=== PATIENT | male | born 1955 | race Caucasian/White ===

== ENCOUNTER 2019-02-06 15:22 | Inpatient (IN) | payer OTHER, SELFPAY ==
[2019-02-06] MEDS ORDERED: NA CHLORIDE 0.9% 1,000 ML ONE (15:48)
--- NOTE | 2019-02-06 15:49 | RAD REPORT ---
EXAM DESCRIPTION: CT - Ct Stroke Brain Wo Cont - 02/06/2019 3:37 pm CLINICAL HISTORY: Right arm numbness COMPARISON: None TECHNIQUE: Computed axial tomography of the head was obtained. All CT scans are performed using dose optimization technique as appropriate and may include automated exposure control or mA/KV adjustment according to patient size. FINDINGS: An intracranial bleed is not seen . The ventricles are normal in caliber. No extra-axial fluid collection is noted. Small low-density areas within the right cerebrum probably old infarction. Mild low-density within periventricular, deep and subcortical white matter likely ischemic changes s econdary to small vessel disease Fluid within the sinuses/ mastoids is not seen. IMPRESSION: No acute intracranial abnormality is seen. If patient's symptoms persist MRI of the bra in would be recommended. [place] of the emergency room was notified at 3:43 p.m. February 06, 2019
[2019-02-06 15:54] LABS: Absolute Lymphocytes (CBC) 2.8 K/uL (0.7-4.9); Hematocrit 46.7 % (39.6-49.0); Lymphocytes % 24.5 % (15.3-44.8); MPV 9.5 fL (7.6-11.3); RBC Red Blood Cell Count 5.34 M/uL (4.33-5.43)
[2019-02-06 15:59] LABS: Protime INR 1.01
[2019-02-06 16:06] LABS: Potassium 3.5 mmol/L (3.5-5.1)
--- NOTE | 2019-02-06 16:16 | RAD REPORT ---
EXAM DESCRIPTION: Michael Single View02/06/2019 4:02 pm CLINICAL HISTORY: Hypertension COMPARISON: 2008 FINDINGS: The lungs appear clear of acute infiltrate. The heart is borderline enlarged IMPRESSION: No acute abnormalities displayed
[2019-02-06] MEDS ORDERED: dilTIAZem HCL 25 MG/5 ML VIAL IV ONE (16:42)
--- NOTE | 2019-02-06 16:52 | ER ---
Nurse's Notes [facility] Name: Devendra Key Age: 64 yrs Sex: Male : 1955 Arrival Date: 02/06/2019 Time: 15:29 Bed 3 Private MD: Diagnosis: Atrial fibrillation and flutter;Tachycardia, unspecified Presentation: 02/06 15:30 Presenting complaint: EMS states: right arm, right leg, and tongue numbness that began aa5 today at 1400. Pt states "I am just having tingling now not numbness". Pt denies pain. EMS reports initial BP 220/130 and HR 140, decreased to 197/128 after 1 Nitro. 15:30 Transition of care: patient was not received from another setting of care. An acute aa5 neurological deficit is present. Pre-hospital glucose is not applicable to this patient. Onset of symptoms was February 06, 2019. Risk Assessment: Do you want to hurt yourself or someone else? Patient reports no desire to harm self or others. Initial Sepsis Screen: Does the patient meet any 2 criteria? HR > 90 bpm. Does the patient have a suspected source of infection? No. Patient's initial sepsis screen is negative. Care prior to arrival: Medication(s) given: ASA, 81 mg, x 4, Nitroglycerin, 0.4 mg SL x 1, IV initiated. 18 GA, in the left antecubital area, Glucose check: 401. 15:30 Acuity: JACKELINE 2 aa5 15:30 Method Of Arrival: EMS: [facility] aa5 Triage Assessment: 15:30 The onset of the patients symptoms was February 06, 2019 at 14:00. aa5 Stroke Activation: Symptom onset < 3 hours Physician: Stroke Attending; Name: ; Notified At: ; Arrived At: Physician: Chief Stroke Resident; Name: ; Notified At: ; Arrived At: Physician: Stroke Resident; Name: ; Notified At: ; Arrived At: Physician: ED Attending; Name: ; Notified At: ; Arrived At: Physician: ED Resident; Name: ; Notified At: ; Arrived At: Historical: - Allergies: 15:35 No Known Allergies; aa5 - Home Meds: 15:35 None [Active]; aa5 - PMHx: 15:35 Myocardial infarction; Hypertension; aa5 - PSHx: 15:35 Heart stents; Cholecystectomy; Appendectomy; neck; cara knee; shoulder; foot; aa5 - Immunization history:: Adult Immunizations unknown. - Social history:: Patient/guardian denies using alcohol, street drugs, The patient lives alone, with family, Smoking status: Patient uses tobacco products, smokes two packs cigarettes per day. - Family history:: not pertinent. - Ebola Screening: : No symptoms or risks identified at this time. Screenin:30 Abuse screen: Denies threats or abuse. Nutritional screening: No deficits noted. aa5 Tuberculosis screening: No symptoms or risk factors identified. Fall Risk None identified. Assessment: 15:30 General: Appears comfortable, Behavior is calm, cooperative. Pain: Denies pain. Neuro: aa5 Level of Consciousness is awake, alert, obeys commands, Oriented to person, place, time, situation, Partition Assembler are equal bilaterally Moves all extremities. Speech is normal, Facial symmetry appears normal, Pupils are PERRLA, Reports tingling to right arm and right leg. Cardiovascular: Heart tones S1 S2 present Rhythm is atrial fibrillation with rapid ventricular response. Respiratory: Airway is patent Respiratory effort is even, unlabored, Respiratory pattern is regular, symmetrical, Breath sounds are clear bilaterally. GI: Abdomen is round non-distended, Bowel sounds present X 4 quads. Abd is soft and non tender X 4 quads. Patient currently denies nausea, vomiting. : No signs and/or symptoms were reported regarding the genitourinary system. EENT: No signs and/or symptoms were reported regarding the EENT system. Derm: Skin is pink, warm \\T\\ dry. Musculoskeletal: Range of motion: intact in all extremities. 15:30 T-PA (Activase) Screening: Contraindications: Other: Rapid improvement of symptoms. aa5 15:32 Reassessment: Pt to CT via stretcher, accompanied by Marnie Eastman RN. aa5 15:32 VAN Scoring: Arm Drift: Patients demonstrates NO arm weakness. Patient is VAN Negative. aa5 15:55 Patient has been NPO before screening. The patient is alert, and able to follow aa5 commands. The patient does not exhibit slurred or garbled speech. The patient is not exhibiting difficulty speaking. The patient does not exhibit difficulty understanding words. The patient is able to swallow own secretions with no drooling or need for suction. Patient tolerated one teaspoon of water. No drooling, immediate coughing, gurgling, or clearing of the throat was noted. The patient tolerated 90mL of water. No drooling, immediate coughing, gurgling, or clearing of the throat was noted. The patient passed the bedside swallow screening. Oral medications may be given as ordered. Contact Physician for further diet orders. Provider notified of bedside swallow screening results: Aniyah Mckeon MD. 16:00 Reassessment: Patient is alert, oriented x 3, equal unlabored respirations, skin aa5 warm/dry/pink. Patient denies pain at this time. Reports tingling to right arm and right leg, symptoms remain unchanged. . 16:50 Reassessment: Patient is alert, oriented x 3, equal unlabored respirations, skin aa5 warm/dry/pink. Patient denies pain at this time. 17:50 Reassessment: Patient appears in no apparent distress at this time. No changes from rb1 previously documented assessment. Family and friends at the bedside. Pt. is laughing and joking around with them. 18:00 Reassessment: Unsuccessful attempt to call report to admitting nurse. . aa5 18:00 Reassessment: Patient is alert, oriented x 3, equal unlabored respirations, skin aa5 warm/dry/pink. Patient denies pain at this time. Pt reports mild tingling to right arm and right leg. . 18:33 Reassessment: Pt taken to CT via wheelchair. . aa5 19:10 Reassessment: Patient appears in no apparent distress at this time. Patient and/or cc3 family updated on plan of care and expected duration. Pain level reassessed. Patient is alert, oriented x 3, equal unlabored respirations, skin warm/dry/pink. Received this male patient from morning shift DAVID Garcia as a case of atrial fibrillation for admission to room 409 after shift change. With IV cannula gauge 18 at the left ACV saline locked. Patient denies pain at this time. Patient states feeling better. Patient states symptoms have improved. General: Appears in no apparent distress. comfortable, Behavior is calm, cooperative, appropriate for age. Pain: Denies pain. Neuro: Level of Consciousness is awake, alert, obeys commands, Oriented to person, place, time, situation, Appropriate for age Partition Assembler are equal bilaterally Moves all extremities. Speech is normal, Facial symmetry appears normal, Pupils are PERRLA, Reports tingling to right arm and right leg. Cardiovascular: Denies chest pain, Heart tones S1 S2 present Capillary refill < 3 seconds in bilateral fingers Patient's skin is warm and dry. Rhythm is atrial fibrillation. Respiratory: Airway is patent Respiratory effort is even, unlabored, Respiratory pattern is regular, symmetrical, Breath sounds are clear bilaterally. GI: Abdomen is round non-distended, Bowel sounds present X 4 quads. Abd is soft and non tender X 4 quads. Patient currently denies nausea, vomiting. : No signs and/or symptoms were reported regarding the genitourinary system. EENT: No signs and/or symptoms were reported regarding the EENT system. Derm: Skin is intact, is fragile, Skin is pink, warm \\T\\ dry. normal. Musculoskeletal: Circulation, motion, and sensation intact. Range of motion: intact in all extremities. 19:47 Reassessment: Patient appears in no apparent distress at this time. Patient and/or cc3 family updated on plan of care and expected duration. Pain level reassessed. Patient is alert, oriented x 3, equal unlabored respirations, skin warm/dry/pink. Room available in 409, report called and handed over to DAVID Reynoso for continuity of care and treatment. 20:00 Reassessment: Patient appears in no apparent distress at this time. Patient and/or cc3 family updated on plan of care and expected duration. Pain level reassessed. Patient is alert, oriented x 3, equal unlabored respirations, skin warm/dry/pink. Patient left ER for admission vitally stable by stretcher escorted by offshore wind turbine technicianprasanth Stiles and the patient's family. No valuables left in the patient's room. Patient denies pain at this time. Patient states feeling better. Patient states symptoms have improved. Vital Signs: 15:31 BP 186 / 139; Pulse 118; Resp 18 S; Pulse Ox 98% on R/A; Pain 0/10; aa5 15:40 Temp 98.5(O); aa5 15:45 BP 170 / 117; Pulse 106; Resp 16 S; Pulse Ox 99% on R/A; aa5 16:30 BP 161 / 108; Pulse 108; Resp 18 S; Pulse Ox 99% on R/A; aa5 16:50 BP 141 / 99; Pulse 100; Resp 18 S; Pulse Ox 99% on R/A; aa5 17:50 BP 152 / 86; Pulse 86; Resp 20; Pulse Ox 98% on R/A; rb1 19:48 BP 183 / 93; Pulse 95; Resp 19 S; Temp 97.7(O); Pulse Ox 98% on R/A; cc3 NIH Stroke Scale Scores: 15:30 NIHSS Score: 1 aa5 ED Course: 15:29 Patient arrived in ED. aa5 15:30 Radha Domínguez, RN is Primary Nurse. aa5 15:30 Arm band placed on. EKG completed in triage. Results shown to MD. aa5 15:30 Patient has correct armband on for positive identification. Placed in gown. Bed in low aa5 position. Call light in reach. Side rails up X2. 15:30 court monitor on. Pulse ox on. NIBP on. aa5 15:31 EKG done, by dietetic technician. reviewed by Aniyah Mckeon MD. 3 15:32 Aniyah Mckeon MD is Attending Physician. ma2 15:35 Triage completed. aa5 15:37 CT completed. Patient tolerated procedure well. vm2 15:[address] back from [address]. vm2 15:37 CT Stroke Brain w/o Contrast In Process Unspecified. EDMS 15:42 Initial lab(s) drawn, sent to lab. Maintain EMS IV. Dressing intact. Good blood return aa5 noted. Site clean \\T\\ dry. Gauge \\T\\ site: 18 G to L AC . 16:03 Stroke CXR 1 View In Process Unspecified. EDMS 16:51 Sid Clark MD is Hospitalizing Provider. ma2 19:00 Report given to DAVID Hernandez and DAVID Panda. aa5 20:00 No provider procedures requiring assistance completed. Patient admitted, IV remains in cc3 place. Administered Medications: 15:55 Drug: NS 0.9% 1000 ml Route: IV; Rate: 1 bolus; Site: left antecubital; aa5 16:53 Follow up: IV Status: Completed infusion; IV Intake: 1000ml aa5 16:43 Drug: Diltiazem 20 mg Route: IVP; Site: left antecubital; aa5 16:53 Follow up: Response: No adverse reaction aa5 19:22 Drug: Tylenol 650 mg Route: PO; ea 19:30 Follow up: Response: No adverse reaction cc3 Point of Care Testing: Blood Glucose: 15:43 Blood Glucose: 357 mg/dL; aa5 Ranges: Intake: 16:53 IV: 1000ml; Total: 1000ml. aa5 Outcome: 16:51 Decision to Hospitalize by Provider. ma2 20:00 Admitted to Tele accompanied by tech, family with patient, via stretcher, room 409, cc3 with chart, Report called to DAVID Reynoso 20:00 Condition: stable 20:00 Instructed on the need for admit, Demonstrated understanding of instructions. 20:09 Patient left the ED. cc3 NIH Stroke Scale - NIH Stroke Score Date: 02/06/2019 Time: 15:30 Total Score = 1 1a. Level of Consciousness (LOC) - 0(Alert) 1b. Level of Consciousness (LOC) (Year \\T\\ Age) - 0(Both) 1c. LOC Commands (Open \\T\\ Closes Eyes/Hydrometeorologist) - 0(Both) 2. Best Gaze (Lateral Gaze Paresis) - 0(Normal) 3. Visual Field Loss - 0(No visual loss) 4. Facial Palsy - 0(Normal) 5a. Left Arm: Motor (10-second hold) - 0(No drift) 5b. Right Arm: Motor (10-second hold) - 0(No drift) 6a. Left Leg: Motor (5-second hold - always test supine) - 0(No drift) 6b. Right Leg: Motor (5-second hold - always test supine) - 0(No drift) 7. Limb Ataxia (finger/nose \\T\\ heel/clark - test with eyes open) - 0(Absent) 8. Sensory Loss (pinprick arms/legs/face) - 1(Mild to moderate loss) 9. Best Language: Aphasia (description/naming/reading) - 0(No aphasia) 10. Dysarthria (speech clarity - read or repeat words) - 0(Normal) 11. Extinction and Inattention (visual/tactile/auditory/spatial/personal) - 0(No abnormality) Initials: aa5 Signatures: Dispatcher [employer] EDRadha Zaragoza RN RN aa5 Angelia Betts RN RN [facility] Mary Goddard RN RN Aniyah Shukla MD MD ma2 Piedad Ruggiero 3 Amarilys Szymanski cc3 Corrections: (The following items were deleted from the chart) 15:38 15:30 Presenting complaint: EMS states: right arm, right leg, and tongue aa5 numbness that began today at 1400. Pt states "I am just having tingling now not numbness". Pt denies pain. aa5 19:54 19:48 BP 183 / 93; Pulse 95bpm; Resp 19bpm; Spontaneous; Pulse Ox 98% RA; cc3 cc3
--- NOTE | 2019-02-06 16:53 | EDPHYS ---
Physician Documentation [facility] Name: Devendra Key Age: 64 yrs Sex: Male : 1955 Arrival Date: 02/06/2019 Time: 15:29 Bed 3 Private MD: ED Physician Aniyah Mckeon HPI: 02/06 15:33 This 64 yrs old Male presents to ER via Unassigned with complaints of S/S of ma2 Possible Stroke. 15:33 The patient's problem is reported as paresthesias, in right upper extremity, in right ma2 lower extremity. Onset: The symptoms/episode began/occurred gradually, 1 hour(s) ago. Associated signs and symptoms: Pertinent negatives: ataxia, combativeness, diarrhea, dizziness. Severity of symptoms: At their worst the symptoms were mild in the emergency department the symptoms have resolved. The patient has experienced similar episodes in the past. Historical: - Allergies: 15:35 No Known Allergies; aa5 - Home Meds: 15:35 None [Active]; aa5 - PMHx: 15:35 Myocardial infarction; Hypertension; aa5 - PSHx: 15:35 Heart stents; Cholecystectomy; Appendectomy; neck; cara knee; shoulder; foot; aa5 - Immunization history:: Adult Immunizations unknown. - Social history:: Patient/guardian denies using alcohol, street drugs, The patient lives alone, with family, Smoking status: Patient uses tobacco products, smokes two packs cigarettes per day. - Family history:: not pertinent. - Ebola Screening: : No symptoms or risks identified at this time. ROS: 15:33 Constitutional: Negative for fever, chills, and weight loss. ma2 15:33 All other systems are negative. Exam: 15:33 Constitutional: This is a well developed, well nourished patient who is awake, alert, ma2 and in no acute distress. Head/Face: Normocephalic, atraumatic. Chest/axilla: Normal chest wall appearance and motion. Nontender with no deformity. No lesions are appreciated. Cardiovascular: Regular rate and rhythm with a normal S1 and S2. No gallops, murmurs, or rubs. Normal PMI, no JVD. No pulse deficits. Respiratory: Lungs have equal breath sounds bilaterally, clear to auscultation and percussion. No rales, rhonchi or wheezes noted. No increased work of breathing, no retractions or nasal flaring. Abdomen/GI: Soft, non-tender, with normal bowel sounds. No distension or tympany. No guarding or rebound. No evidence of tenderness throughout. Skin: Warm, dry with normal turgor. Normal color with no rashes, no lesions, and no evidence of cellulitis. MS/ Extremity: Pulses equal, no cyanosis. Neurovascular intact. Full, normal range of motion. Neuro: Awake and alert, GCS 15, oriented to person, place, time, and situation. Cranial nerves II-XII grossly intact. Motor strength 5/5 in all extremities. Sensory grossly intact. Cerebellar exam normal. Normal gait. Vital Signs: 15:31 BP 186 / 139; Pulse 118; Resp 18 S; Pulse Ox 98% on R/A; Pain 0/10; aa5 15:40 Temp 98.5(O); aa5 15:45 BP 170 / 117; Pulse 106; Resp 16 S; Pulse Ox 99% on R/A; aa5 16:30 BP 161 / 108; Pulse 108; Resp 18 S; Pulse Ox 99% on R/A; aa5 16:50 BP 141 / 99; Pulse 100; Resp 18 S; Pulse Ox 99% on R/A; aa5 17:50 BP 152 / 86; Pulse 86; Resp 20; Pulse Ox 98% on R/A; rb1 19:48 BP 183 / 93; Pulse 95; Resp 19 S; Temp 97.7(O); Pulse Ox 98% on R/A; cc3 NIH Stroke Scale Scores: 15:30 NIHSS Score: 1 aa5 MDM: 15:32 Patient medically screened. ma2 15:33 Differential diagnosis: CVA, TIA, Dementia, metabolic disorder, drug effects. ma2 16:50 Data reviewed: vital signs, nurses notes. Data interpreted: media monitor: rate is ma2 120 beats/min, rhythm is atrial fibrillation. Counseling: I had a detailed discussion with the patient and/or guardian regarding: the historical points, exam findings, and any diagnostic results supporting the discharge/admit diagnosis, the presence of at least one elevated blood pressure reading (>120/80) during this emergency department visit, the need for further work-up and treatment in the hospital. Response to treatment: the patient's symptoms have markedly improved after treatment. 02/06 15:31 Order name: Basic Metabolic Panel; Complete Time: 16:37 [facility] 02/06 15:31 Order name: CBC with Diff; Complete Time: 16:37 [facility] 02/06 15:31 Order name: Protime (+inr); Complete Time: 16:37 [facility] 02/06 15:31 Order name: Ptt, Activated; Complete Time: 16:37 [facility] 02/06 15:56 Order name: Glucose, Ancillary Testing; Complete Time: 16:37 [facility] 02/06 17:01 Order name: Thyroid Stimulating Hormone [facility] 02/06 15:31 Order name: CT Stroke Brain w/o Contrast; Complete Time: 16:37 [facility] 02/06 17:01 Order name: CKMB Creatine Kinase MB [facility] 02/06 17:01 Order name: Creatine Phosphokinase [facility] 02/06 17:01 Order name: Troponin I [facility] 02/06 17:47 Order name: Hemoglobin A1c [facility] 02/06 17:47 Order name: Hemoglobin A1c [facility] 02/06 19:58 Order name: Urinalysis [facility] 02/06 19:59 Order name: Urine Dipstick--Ancillary (enter results) [facility] 02/06 15:31 Order name: Stroke CXR 1 View; Complete Time: 16:37 [facility] 02/06 15:31 Order name: EKG; Complete Time: 15:32 [facility] 02/06 15:31 Order name: Accucheck; Complete Time: 15:45 [facility] 02/06 15:31 Order name: Cardiac monitoring; Complete Time: 15:31 [facility] 02/06 15:31 Order name: EKG - Nurse/Tech; Complete Time: 15:33 [facility] 02/06 15:31 Order name: IV Saline Lock; Complete Time: 15:31 [facility] 02/06 15:31 Order name: Labs collected and sent; Complete Time: 15:45 [facility] 02/06 15:31 Order name: NPO; Complete Time: 15:31 [facility] 02/06 17:01 Order name: Heart Healthy [facility] 02/06 17:44 Order name: Brain Wo Cont [facility] 02/06 17:47 Order name: Echo with Doppler [facility] 02/06 17:47 Order name: Carotid Artery Bilateral [facility] 02/06 17:49 Order name: Physical Therapy Consult [facility] 02/06 15:31 Order name: O2 Per Protocol; Complete Time: 15:31 aa5 02/06 15:31 Order name: O2 Sat Monitoring; Complete Time: 15:31 aa5 02/06 15:31 Order name: Stroke Swallow Screen; Complete Time: 18:34 aa5 Administered Medications: 15:55 Drug: NS 0.9% 1000 ml Route: IV; Rate: 1 bolus; Site: left antecubital; aa5 16:53 Follow up: IV Status: Completed infusion; IV Intake: 1000ml aa5 16:43 Drug: Diltiazem 20 mg Route: IVP; Site: left antecubital; aa5 16:53 Follow up: Response: No adverse reaction aa5 19:22 Drug: Tylenol 650 mg Route: PO; ea 19:30 Follow up: Response: No adverse reaction cc3 Point of Care Testing: Blood Glucose: 15:43 Blood Glucose: 357 mg/dL; aa5 Ranges: Critical Glucose Levels:Adult <50 mg/dl or >400 mg/dl <40 mg/dl or >180 mg/dl Disposition: 02/06/19 16:51 Hospitalization ordered by Sid Clark for Observation. Preliminary diagnosis are Atrial fibrillation and flutter, Tachycardia, unspecified. - Bed requested for Telemetry/MedSurg (observation). - Status is Observation. cc3 - Condition is Stable. - Problem is new. - Symptoms are unchanged. UTI on Admission? No NIH Stroke Scale - NIH Stroke Score Date: 02/06/2019 Time: 15:30 Total Score = 1 1a. Level of Consciousness (LOC) - 0(Alert) 1b. Level of Consciousness (LOC) (Year \T\ Age) - 0(Both) 1c. LOC Commands (Open \T\ Closes Eyes/Clipper And Turner) - 0(Both) 2. Best Gaze (Lateral Gaze Paresis) - 0(Normal) 3. Visual Field Loss - 0(No visual loss) 4. Facial Palsy - 0(Normal) 5a. Left Arm: Motor (10-second hold) - 0(No drift) 5b. Right Arm: Motor (10-second hold) - 0(No drift) 6a. Left Leg: Motor (5-second hold - always test supine) - 0(No drift) 6b. Right Leg: Motor (5-second hold - always test supine) - 0(No drift) 7. Limb Ataxia (finger/nose \T\ heel/clark - test with eyes open) - 0(Absent) 8. Sensory Loss (pinprick arms/legs/face) - 1(Mild to moderate loss) 9. Best Language: Aphasia (description/naming/reading) - 0(No aphasia) 10. Dysarthria (speech clarity - read or repeat words) - 0(Normal) 11. Extinction and Inattention (visual/tactile/auditory/spatial/personal) - 0(No abnormality) Initials: aa5 Signatures: Dispatcher [employer] EDMS Martha Canales RN RN Radha Das RN RN aa5 Mary Goddard, RN RN Aniyah Shukla MD MD ma2 Amarilys Szymanski cc3 Corrections: (The following items were deleted from the chart) 17:49 16:51 Hospitalization Ordered by Sid Clark MD for Observation. Preliminary dw diagnosis is Atrial fibrillation and flutter; Tachycardia, unspecified. Bed requested for Telemetry/MedSurg (observation). Status is Observation. Condition is Stable. Problem is new. Symptoms are unchanged. UTI on Admission? No. ma2 20:09 17:49 02/06/2019 16:51 Hospitalization Ordered by Sid Clark MD for cc3 Observation. Preliminary diagnosis is Atrial fibrillation and flutter; Tachycardia, unspecified. Bed requested for Telemetry/MedSurg (observation). Status is Observation. Condition is Stable. Problem is new. Symptoms are unchanged. UTI on Admission? No. dw
[2019-02-06] MEDS ORDERED: ACETAMINOPHEN 500 MG TAB PO PRN (16:57)
--- NOTE | 2019-02-06 17:30 | P.HP ---
Certification for Inpatient Patient admitted to: Observation With expected LOS: <2 Midnights Patient will require the following post-hospital care: None Practitioner: I am a practitioner with admitting privileges, knowledge of patient current condition, hospital course, and medical plan of care. Services: Services provided to patient in accordance with Admission requirements found in Title 42 Section 412.3 of the Code of Federal Regulations Patient History Date of Service: 02/06/19 Reason for admission: right upper extremity numbness History of Present Illness: 64-year-old male with past medical history of hypertension, CAD, status post stents approximately 10 years ago, hyperlipidemia, smoker came to ER with tingling and numbness of the right upper extremity and lower extremity on the right side which started at 2 o'clock in the afternoon. Insidious in onset. denies any chest pain or palpitations. had diaphoresis. No fever no chills. no weakness. Denies any headache. Patient was assessed in the ER and was found to have AFib with RVR with heart rate of more than 120 and had a stroke workup with CT head which was negative. Patient was given Cardizem and the rate was controlled well. the patient is being admitted for further workup and management Home medications list reviewed: Yes - Past Medical/Surgical History Past Medical History: Reviewed- Non-Contributory -: Hypertension -: Coronary artery disease -: Hyperlipidemia Past Surgical History: Reviewed- Non-Contributory -: Neck surgery -: Cholecystectomy -: Knee surgeries and other orthopedic surgeries in the foot - Family History Family History: Reviewed- Non-Contributory - Social History Smoking Status: Current every day smoker Review of Systems 10-point ROS is otherwise unremarkable Respiratory: Unremarkable Cardiovascular: Unremarkable Physical Examination - Vital Signs Temperature: 97.8 F Blood Pressure: 146/88 Pulse: 86 - Physical Exam General: Alert, In no apparent distress, Obese HEENT: Atraumatic, Normocephalic Neck: Supple, No Thyromegaly Respiratory: Clear to auscultation bilaterally, Normal air movement Cardiovascular: Irregular heart rate/rhythm Capillary refill: <2 Seconds Gastrointestinal: Soft and benign, W/out hepatosplenomegaly Musculoskeletal: No clubbing, No swelling Integumentary: No rashes Neurological: Normal speech, Normal strength at 5/5 x4 extr, Other (Right upper extremity sensory deficits), Abnormal sensation Lymphatics: No axilla or inguinal lymphadenopathy External genitalia: Deferred Rectal: Deferred - Studies Laboratory Data (last 24 hrs) 02/06/19 15:42: PT 11.9, INR 1.01, APTT 32.3 02/06/19 15:42: WBC 11.4 H, Hgb 16.2, Hct 46.7, Plt Count 180 02/06/19 15:42: Sodium 137, Potassium 3.5, BUN 21 H, Creatinine 0.97, Glucose 344 H Assessment and Plan - Problems (Diagnosis) (1) Sensory deficit, right Current Visit: Yes Status: Acute Plan: Monitor under telemetry Will get a stroke workup with MRI of the brain and carotid Doppler Start on aspirin statin Get a PTOT evaluation neurology consult (2) Atrial fibrillation with RVR Current Visit: Yes Status: Acute Plan: Monitor under telemetry will start on beta blockers for rate control Get an echocardiogram Trend cardiac enzymes Cardiology consult Will start on Lovenox (3) Hypertension Current Visit: Yes Status: Chronic Plan: Will titrate antihypertensives Continue home medications and as needed (4) Hyperlipidemia Current Visit: Yes Status: Acute Plan: Continue home medications Will get a lipid panel (5) Hyperglycemia Current Visit: Yes Status: Acute Plan: start on insulin sliding scale Get an A1c (6) Smoker Current Visit: Yes Status: Chronic Plan: Advised smoking cessation Offered measures 2 stops smoking (7) History of coronary artery disease Current Visit: Yes Status: Chronic Plan: History of CAD status post stents Monitor under telemetry Continue statin and aspirin Trend cardiac enzymes Discharge Plan: Home Plan to discharge in: 48 Hours - Advance Directives Does patient have a Living Will: No Does patient have a Durable POA for Healthcare: No Time Spent Managing Pts Care (In Minutes): 43
[2019-02-06 17:44] LABS: CKMB Creatine Kinase MB 2.1 ng/mL (0.3-3.6); Creatine Phosphokinase 128 U/L (39-308); Troponin I < 0.02 ng/mL (0.0-0.045)
[2019-02-06] MEDS ORDERED: D50W 25 GM/50 ML SYRINGE/VIAL IV PRN (17:46)
[2019-02-06] MEDS ORDERED: GLUCAGON 1 MG/VIAL IM PRN (17:46)
--- NOTE | 2019-02-06 18:34 | EKG ---
Test Date: 2019-02-06 Test Time: 15:25:41 Customer Operations Representative: EVA MEASUREMENT RESULTS: Intervals: Rate: 110 MT: QRSD: 88 QT: 342 QTc: 462 [place]: P: MT: QRS: -20 T: 78 INTERPRETIVE STATEMENTS: Atrial fibrillation with rapid ventricular response Septal infarct, age undetermined Abnormal ECG No previous ECG available for comparison Electronically Signed On 02-06-19 18:33:13 ASSEMBLY MACHINE SET UP MECHANIC by Juan Donato
[2019-02-06] MEDS ORDERED: ACETAMINOPHEN 325 MG TABLET ONE (19:13)
--- NOTE | 2019-02-06 19:14 | RAD REPORT ---
EXAM DESCRIPTION: MRI - Brain Wo Cont - 02/06/2019 6:56 pm CLINICAL HISTORY: Numbness COMPARISON: none TECHNIQUE: Axial, sagittal, and coronal magnetic images of the brain were obtained. Contrast was not requested FINDINGS: Mild to moderate signal within periventricular and deep white matter likely ischemic paul es secondary to small vessel disease Diffusion-weighted/ADC mapping demonstrates a 7 millimeter area of abnormal signal within the right c erebellum as well as a 5 millimeter area of abnormal signal within the left thalamus compatible with infarcts. . The ventricles are normal caliber. An extra-axial fluid collection is not present The sinuses and mastoids are clear. IMPRESSION: Small areas of abnormal signal within the right cerebellum and left thalamus compatible with infarcts
[2019-02-06 20:16] LABS: Urine Blood NEGATIVE (NEG); Urine Glucose 3+ (NEG); Urine Protein 2+ (NEG)
[2019-02-06 20:21] LABS: Urine Appearance CLEAR; Urine Bilirubin NEGATIVE (NEG); Urine Blood NEGATIVE (NEG); Urine Color YELLOW; Urine Glucose 3+ (NEG); Urine Protein 2+ (NEG); Urine Urobilinogen 0.2 mg/dL (0.2-1.0)
[2019-02-06 20:26] LABS: Urine Microscopic Reflex ORDER UMIC
[2019-02-06 20:42] LABS: Urine Bacteria <20 /HPF (NONE SEEN); Urine RBC <5 /HPF (NONE SEEN)
[2019-02-06 20:43] LABS: Urine Amorphous Sediment 1+ /HPF (NONE SEEN); Urine Culture Reflex Order NOT NEEDED; Urine Mucus 1+ /HPF (NONE SEEN)
--- NOTE | 2019-02-06 20:54 | RAD REPORT ---
EXAM DESCRIPTION: USCarotid Artery Qsohkdbak68/20/2019 8:16 pm CLINICAL HISTORY: cva COMPARISON: None FINDINGS: Mild to moderate plaque within the right carotid bulb. The right internal carotid artery i s occluded. Right external carotid artery is patent. The velocity of the left internal carotid artery equals 92 cm/sec. The left ICA/CCA ratio 0.9 Mild plaque is present within the carotid arteries. The vertebral arteries demonstrate antegrade flow IMPRESSION: Right internal carotid artery is occluded. My suspicion is that this is chronic NASCET criteria used. Mild 0-49% stenosis Moderate 50-69% stenosis Severe 70-99% stenosis
[2019-02-06 21:00] VITALS: BMI 30.7
[2019-02-06] MEDS ORDERED: ENOXAPARIN 100 MG/ML SYR SQ SCH (21:00)
[2019-02-06] MEDS ORDERED: INSULIN -REGULAR HUMAN 50 UNIT/0.5 ML ML SQ SCH (21:00)
[2019-02-06] MEDS ORDERED: METOPROLOL TAR 50 MG TAB PO SCH (21:00)
[2019-02-06] MEDS ORDERED: ATORVASTATIN 40 MG TAB PO SCH (21:00)
[2019-02-06] MEDS ORDERED: NA CHLORIDE 0.9% 1,000 ML IV SCH (23:45)
[2019-02-07 01:40] LABS: CKMB Creatine Kinase MB 1.7 ng/mL (0.3-3.6); Creatine Phosphokinase 109 U/L (39-308); Troponin I < 0.02 ng/mL (0.0-0.045)
[2019-02-07 03:23] VITALS: TEMP 98.1
[2019-02-07] MEDS ORDERED: HYDRALAZINE HCL 20 MG/ML VIAL ONE ×2 (03:54→04:39)
[2019-02-07] MEDS: ONDANSETRON 4 MG/2 ML VIAL IV PRN ×2 (04:10→05:00)
[2019-02-07 05:15] LABS: Absolute Lymphocytes (CBC) 5.5 K/uL (0.7-4.9); Basophils % 0.8 % (0-1.3); Hematocrit 50.2 % (39.6-49.0); Lymphocytes % 35.3 % (15.3-44.8); RBC Red Blood Cell Count 5.73 M/uL (4.33-5.43)
[2019-02-07 05:27] LABS: Albumin 3.5 g/dL (3.4-5.0); Bilirubin Total 0.8 mg/dL (0.2-1.0); Magnesium 1.7 mg/dL (1.8-2.4); Phosphorus 2.8 mg/dL (2.5-4.9); Potassium 3.2 mmol/L (3.5-5.1); Protein, Total 6.9 g/dL (6.4-8.2)
[2019-02-07] MEDS ORDERED: Nicardipine/NS 25 MG/250 ML KIT IV ONE (05:43)
[2019-02-07] MEDS ORDERED: Nicardipine in Saline, Iso-Osm 20 MG/200 ML IV.SOLN. IV PRN (05:47)
[2019-02-07] MEDS ORDERED: FENTANYL CITR 100 MCG/2 ML IV ONE (07:40)
[2019-02-07] MEDS ORDERED: INFLUENZA VACCINE (for 3y+) 0.5 ML DOSE IMVAC ONE (08:00)
[2019-02-07] MEDS ORDERED: KCL 20 MEQ/100 mL IVPB 20 MEQ/100 ML BAG IV SCH (08:00)
[2019-02-07] MEDS ORDERED: PNEUMOCOCCAL VACCINE 0.5 ML IMVAC ONE (08:00)
--- NOTE | 2019-02-07 08:11 | P.PN ---
Date of Service: 02/07/19 Called to see patient at 3:30 a.m. Patient was unable to move the right side of his body suddenly. Patient became aphasic. Patient was last seen at 3:00 a.m. by nursing staff. At that time patient was awake and alert an oriented to person place and time. Patient was moving all his extremities. His right side with just minimally weaker than the left. By 3:30 a.m. this had all changed. Patient was aphasic and not moving the right side of his upper or lower extremity. Code stroke was called. Stroke scale was noted to be 14. Significant worsening from stroke scale of [address] of the brain was performed. Revealed MRI findings of right cerebellar infarct & left thalamic infarct. There was some evolution of the stroke as well. We contacted tele neuro. We were advice to Consult transfer center. CT angio of the brain was performed. This revealed minimal flow of the left vertebral artery, minimal flow of the left basilar artery with thrombus, minimal flow of the left posterior cerebral artery, and complete occlusion of the right internal carotid artery. Decision was made after talking to neurologist at [facility] to [facility] patient to their neurointensive care unit. CT angio was performed
--- NOTE | 2019-02-07 08:46 | P.DS ---
Admission Date: 02/07/19 Discharge Date: 02/07/19 Disposition: [facility] Discharge Condition: CRITICAL Reason for Admission: right upper extremity numbness - Problems (1) Sensory deficit, right Status: Acute (2) Atrial fibrillation with RVR Status: Acute (3) Hypertension Status: Chronic (4) Hyperlipidemia Status: Acute (5) Hyperglycemia Status: Acute (6) Smoker Status: Chronic (7) History of coronary artery disease Status: Chronic Brief History of Present Illness: 64-year-old male with past medical history of hypertension, CAD, status post stents approximately 10 years ago, hyperlipidemia, smoker came to ER with tingling and numbness of the right upper extremity and lower extremity on the right side which started at 2 o'clock in the afternoon. Insidious in onset. denies any chest pain or palpitations. had diaphoresis. No fever no chills. no weakness. Denies any headache. Patient was assessed in the ER and was found to have AFib with RVR with heart rate of more than 120 and had a stroke workup with CT head which was negative. Patient was given Cardizem and the rate was controlled well. the patient is being admitted for further workup and management Hospital Course: He was admitted with AFib with RVR initially and with numbness on the right side of the body. Initial workup with CT brain was within normal limits. Treated with Cardizem and the rate was controlled. He was admitted and was started on aspirin statin and Lovenox. and stroke workup was ordered and had an MRI which showed acute stroke . patient had worsening of symptoms daily morning and had a repeat CT and a CTA was done. on-call hospitalist discuss with daily neuro and transfer the patient to [facility] for neuro interventions. Vital Signs/Physical Exam: Temp Pulse Resp BP Pulse Ox 98.1 F 69 18 156/91 H 94 02/07/19 03:22 02/07/19 03:22 02/07/19 03:22 02/07/19 03:22 02/07/19 03:22 General: Alert HEENT: Atraumatic, Normocephalic Neck: Supple Respiratory: Clear to auscultation bilaterally Cardiovascular: Irregular heart rate/rhythm Laboratory Data at Discharge: WBC 15.5 K/uL (4.3-10.9) H D 02/07/19 04:29 Hgb 17.3 g/dL (13.6-17.9) 02/07/19 04:29 Hct 50.2 % (39.6-49.0) H 02/07/19 04:29 Plt Count 211 K/uL (152-406) 02/07/19 04:29 PT 11.9 SECONDS (9.5-12.5) 02/06/19 15:42 INR 1.01 02/06/19 15:42 APTT 32.3 SECONDS (24.3-36.9) 02/06/19 15:42 Sodium 139 mmol/L (136-145) 02/07/19 04:29 Potassium 3.2 mmol/L (3.5-5.1) L 02/07/19 04:29 BUN 21 mg/dL (7-18) H 02/07/19 04:29 Creatinine 0.91 mg/dL (0.55-1.3) 02/07/19 04:29 Glucose 219 mg/dL (74-106) H 02/07/19 04:29 Phosphorus 2.8 mg/dL (2.5-4.9) 02/07/19 04:29 Magnesium 1.7 mg/dL (1.8-2.4) L 02/07/19 04:29 Total Bilirubin 0.8 mg/dL (0.2-1.0) 02/07/19 04:29 AST 19 U/L (15-37) 02/07/19 04:29 ALT 31 U/L (12-78) 02/07/19 04:29 Alkaline Phosphatase 94 U/L (45-117) 02/07/19 04:29 Troponin I < 0.02 ng/mL (0.0-0.045) 02/07/19 00:55 Triglycerides 184 mg/dL (<150) H 02/07/19 04:29 Cholesterol 225 mg/dL (<200) H 02/07/19 04:29 HDL Cholesterol 47 mg/dL (40-60) 02/07/19 04:29 Cholesterol/HDL Ratio 4.79 02/07/19 04:29 Home Medications: NK [No Home Meds] 02/06/19 Time spent managing pt's care (in minutes): 42
[2019-02-07 08:51] VITALS: O2SAT 99
[2019-02-07] MEDS ORDERED: NICOTINE 21 MG/PAT TD SCH (09:00)
[2019-02-07] MEDS ORDERED: ASPIRIN EC 81 MG TAB PO SCH ×2 (09:00)
[2019-02-07 09:01] VITALS: BP 155/117
--- NOTE | 2019-02-07 10:26 | RAD REPORT ---
EXAM DESCRIPTION: CT - Head angio - 02/07/2019 5:57 am CLINICAL HISTORY: The patient is 64 years old and is Male; stroke TECHNIQUE: Axial computed tomographic angiography images of the head with intravenous contrast. Sa gittal and coronal reformatted images were created and reviewed. This CT exam was performed using o ne or more of the following dose reduction techniques: automated exposure control, adjustment of th e mA and/or kV according to patient size, and/or use of iterative reconstruction technique. MIP reconstructed images were created and reviewed. COMPARISON: CT of the head performed the same day. FINDINGS: ARTIFACTS: The exam is suboptimal secondary to motion artifact. RIGHT INTERNAL CAROTID ARTERY: Occlusion of the right carotid artery is noted. No aneurysm. RIGHT ANTERIOR CEREBRAL ARTERY: Unremarkable. No occlusion or significant stenosis. No aneur ysm. RIGHT MIDDLE CEREBRAL ARTERY: Unremarkable. No occlusion or significant stenosis. No aneurys m. RIGHT POSTERIOR CEREBRAL ARTERY: Minimal flow is noted within the posterior cerebral artery. RIGHT VERTEBRAL ARTERY: Diffuse decreased attenuation of the right vertebral artery is present. LEFT INTERNAL CAROTID ARTERY: No acute findings. Intracranial segment is patent with no signif icant stenosis. No aneurysm. LEFT ANTERIOR CEREBRAL ARTERY: Unremarkable. No occlusion or significant stenosis. No aneury sm. LEFT MIDDLE CEREBRAL ARTERY: Unremarkable. No occlusion or significant stenosis. No aneurysm . LEFT POSTERIOR CEREBRAL ARTERY: Minimal flow is noted within the posterior cerebral artery. LEFT VERTEBRAL ARTERY: Diffuse decrease attenuation of the left vertebral artery is present. BASILAR ARTERY: Diffuse decreased attenuation of the basilar artery is noted. IMPRESSION: 1. 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 2. Decreased contrast throughout the bilateral visualized vertebral arteries, basilar artery, and b ilateral posterior cerebral arteries. Findings may be secondary to motion and hardening artifact; how ever, decreased flow/thrombus is suggested. THIS REPORT CONTAINS FINDINGS THAT MAY BE CRITICAL TO PATIENT CARE: The findings were verbally discussed via telephone conference with Dr. Chavez by Dr. Ra Gonzales on 02/07/2019 6: 26 AM CREDIT REPRESENTATIVE .The results were acknowledged and understood. Electronically signed by: Isabel Gonzales MD 02/07/2019 6:26 AM CREDIT REPRESENTATIVE Due to temporary technical issues with the PACS/Fluency reporting system, reports are being signed by the in house radiologist as a courtesy to ensure prompt reporting. The interpreting radiologist is f ully responsible for the content of the report.
--- NOTE | 2019-02-07 10:28 | RAD REPORT ---
EXAM DESCRIPTION: CT - Ct Stroke Brain Wo Cont - 02/07/2019 4:31 am CLINICAL HISTORY: The patient is 64 years old and is Male; weakness TECHNIQUE: Axial computed tomography images of the head/brain without intravenous contrast. Sagitt al and coronal reformatted images were created and reviewed. This CT exam was performed using one o r more of the following dose reduction techniques: automated exposure control, adjustment of the mA and/or kV according to patient size, and/or use of iterative reconstruction technique. COMPARISON: CT of the head and MRI February 06, 2019. FINDINGS: BRAIN: Subtle areas of low attenuation within the right frontal and high right parietal lobes is noted and stable. There is diffuse cerebral atrophy present, consistent with this patient's age. There is patchy hypoattenuation of the deep white matter which is non-specific, but most likel y owing to chronic small vessel ischemic change in a patient of this age group. Subtle area of low attenuation within the left thalamus is noted. Subtle linear area of low attenuation within the right cerebellar hemisphere is also present. There is no intracranial hemorrhage, mass effect, or midline shift. There are no extra-axial fluid collections. VENTRICLES: Unremarkable. No ventriculomegaly. BONES/JOINTS: No acute fracture. SOFT TISSUES: Unremarkable. SINUSES: Unremarkable as visualized. No acute sinusitis. MASTOID AIR CELLS: Unremarkable as visualized. No mastoid effusion. ORBITS: Unremarkable as visualized. IMPRESSION: 1. Subtle areas of low attenuation within the left thalamus and right cerebellar hemis phere consistent with evolving infarct as seen on prior MRI. 2. No intracranial hemorrhage. Electronically signed by: Isabel Gonzales MD 02/07/2019 4:39 AM GRAB JACK MAN Due to temporary technical issues with the PACS/Fluency reporting system, reports are being signed by the in house radiologist as a courtesy to ensure prompt reporting. The interpreting radiologist is f ully responsible for the content of the report.
--- NOTE | 2019-02-07 14:05 | CON ---
Date of Consultation: 02/07/[address] Clark. I saw the patient on 02/07/2019. Reason For Consultation: CVA. History Of Present Illness: Mr. Key is a 64-year-old white male with history of hypertension, d iabetes, coronary artery disease status post stent in the past, came in with new onset atrial fibrill ation. Initially, sounded like a TIA, was given Lovenox and soon thereafter actually developed a ful l-fledged stroke with altered mental status, appeared to have some issues with posterior circulation. Apparently, there is a plan to transfer him to [facility] to the Stroke Center. Past Medical History: As stated above. Allergies: NONE. Review of Systems: Negative. Social History: Negative. Family History: Negative. Medications: At home, include insulin, metoprolol, aspirin. He is now on Lovenox as well. He is no t a candidate for tPA because of the Lovenox. Physical Examination: General: Mr. Key is completely obtunded. HEENT: Negative. Neck: Supple. No bruit, lymphadenopathy, JVD, or thyromegaly. Chest: Clear. Cardiac: Exam revealed atrial fibrillation. Abdomen: Benign. Extremities: Revealed no clubbing, cyanosis, or edema. EKG showed atrial fibrillation. Chest x-ray is negative. White count is 11.4, glucose . Impression And Plan: New onset atrial fibrillation causing CVA on Lovenox, not a candidate for tPA. Neurologically focal. Neurology consultation is pending. Transfer to the Stroke Center is pending. His thyroid function was normal. His diabetes is poorly controlled. His hypertension is well cont rolled. His coronary artery disease status post stent seems to be well controlled at this point. I agree with the transfer. I agree with neurological consultation. I will be available for questions if the need arises. TERRIE/BEN Voice ID: [id number] Report ID: [id number]
[2019-02-08] MEDS ORDERED: Magnesium Sulfate 2gm IVPB 2 G/50 ML BAG IV ONE (09:00)
== END 2019-02-07 08:50 | disposition short-term general hospital (02) | DRG 65 ==
LOC: ER 15:22 → ERHOLD 16:58 → 4TH 19:47 → 3RD-ICU 02-07 05:30 → OBSVTOIN 02-07 08:48
PROVIDERS: ADMIT Family Medicine; ATTEND Family Medicine
DX: I63.9 Cerebral infarction, unspecified (principal); G81.91 Hemiplegia, unspecified affecting right dominant side; R47.01 Aphasia; I65.21 Occlusion and stenosis of right carotid artery; I10 Essential (primary) hypertension; E78.5 Hyperlipidemia, unspecified; I25.10 Atherosclerotic heart disease of native coronary artery without angina pectoris; F17.210 Nicotine dependence, cigarettes, uncomplicated; I48.91 Unspecified atrial fibrillation; Z95.5 Presence of coronary angioplasty implant and graft; R29.714 NIHSS score 14; R73.9 Hyperglycemia, unspecified
CPT/HCPCS: 36415; 70450; 70496; 70551; 71045; 80048; 80053; 80061; 81003; 81015; 82550; 82553; 82947; 83036; 83735; 84100; 84443; 84484; 85025; 85610; 85730; 93005; 93880; 96361; 96374; 99285; G0378; J0360; J1650; J2405; J3010; J7030; Q9967